=== PATIENT | male | born 1955 | race Caucasian/White ===

== ENCOUNTER 2021-11-19 13:09 | Inpatient (IN) | payer OTHER ==
[~2021-11-19] VITALS: Ht 162.6 cm; Wt 112.5 kg
[2021-11-19 13:18] VITALS: BP_SYST 150
--- NOTE | 2021-11-19 13:22 | NUR ---
[facility] waiting for bed to become available. Pt is A&Ox4. C/o testicle pain and does not remember when the pain started. Rates pain 6/10 non-radiating. VSS. No chest pain and no sob. Denies n/v.
--- NOTE | 2021-11-19 13:59 | NUR ---
Placed in room 7 . Placed on quality assurance monitor, blood pressure machine and pulse oximeter. To gown for exam. Side rails up. Report given to LONA BELLO.
--- NOTE | 2021-11-19 13:59 | NUR ---
ERMD AT BEDSIDE
--- NOTE | 2021-11-19 14:07 | NUR ---
pt refused to sit in bed, stated hesleeps in a chair at home, stated " my balls are swollen"
[2021-11-19] MEDS ORDERED: MORPHINE 2 MG/ML INJ. SYRINGE IVP ONE (15:00)
[2021-11-19] MEDS ORDERED: METF-518 PO (15:03)
[2021-11-19] MEDS ORDERED: GLIP10TA11 PO (15:03)
[2021-11-19] MEDS ORDERED: LISI40TA13 PO (15:03)
[2021-11-19] MEDS ORDERED: PIOG30TA70 PO (15:03)
--- NOTE | 2021-11-19 15:57 | NUR ---
PT IN BED AT THIS TIME, ULTRASOUND AT BEDSIDE
[2021-11-19] MEDS ORDERED: PIPERACILLIN/TAZO 3.375 GM in NS 50 ML IV ONE ×2 (16:00→20:00)
[2021-11-19] MEDS ORDERED: metroNIDAZOLE 500 mg/NS 100 ML IV ONE (16:00)
[2021-11-19] MEDS ORDERED: VANCOMYCIN HCL 1,000 MG in NS 250 ML IV ONE (16:00)
[2021-11-19 16:31] LABS: BILIRUBIN,URINE NEGATIVE (NEGATIVE); COLOR,URINE YELLOW (YELLOW); GLUCOSE,URINE NEGATIVE (NEGATIVE); KETONES,URINE NEGATIVE (NEGATIVE); LEUKOCYTE ESTERASE ,URINE NEGATIVE (NEGATIVE); NITRITE, URINE NEGATIVE (NEGATIVE); PH,URINE 5.5 (5.0-8.0); PROTEIN URINE 1+ (NEGATIVE); UROBILINOGEN,URINE 0.2 (0.2-1.0)
--- NOTE | 2021-11-19 16:33 | NUR ---
EKG performed at by Monisha ZAMORANO. Physician given copy of EKG for review.
[2021-11-19 16:43] LABS: BLOOD, URINE TRACE (NEGATIVE)
[2021-11-19 16:44] LABS: CLARITY/URINE SLIGHTLY HAZY (CLEAR)
[2021-11-19 16:44] LABS: BASOPHILS # (AUTO) 0.1 K/uL (0.0-0.2); BASOPHILS % (AUTO) 0.9 % (0.0-2.0); EOSINOPHILS # (AUTO) 0.1 K/uL (0.0-0.4); EOSINOPHILS % (AUTO) 0.9 % (0.0-4.0); HEMATOCRIT 27.1 % (36-54); HEMOGLOBIN 8.1 g/dL (14.0-18.0); LYMPHOCYTES # (AUTO) 0.8 K/uL (1.0-5.5); LYMPHOCYTES % (AUTO) 12.2 % (20.5-51.5); MEAN CORPUSCULAR HEMOGLOBIN 20 pg (27-31); MEAN CORPUSCULAR HGB CONC 30 % (32-36); MEAN CORPUSCULAR VOLUME 66 fL (79.0-98.0); MONOCYTES # (AUTO) 0.5 K/uL (0.0-1.0); MONOCYTES % (AUTO) 7.3 % (1.7-9.3); NEUTROPHILS # (AUTO) 5.4 K/uL (1.8-7.7); NEUTROPHILS % (AUTO) 78.7 % (40.0-70.0); PLATELET COUNT (AUTO) 289 K/uL (130-430); RED BLOOD CELL COUNT(AUTO) 4.12 MIL/uL (4.2-6.2); RED CELL DISTRIBUTION WIDTH 20.8 % (9.0-15.0); WHITE BLOOD COUNT (AUTO) 6.9 K/uL (4.8-10.8)
[2021-11-19 16:48] LABS: BACTERIA,URINE FEW /HPF (None Seen); MUCUS,URINE None Seen /LPF (None Seen); RBC,URINE 0-3 /HPF (0-3)
[2021-11-19 16:51] LABS: ANION GAP 7 (5-15); CALCIUM 8.6 mg/dL (8.4-11.0); CHLORIDE 103 mmol/L (98-107); CREATININE 0.86 mg/dL (0.55-1.30); GLUCOSE 105 mg/dL (70-99); POTASSIUM 3.9 mmol/L (3.5-5.1); SODIUM SERUM 137 mmol/L (136-145); UREA NITROGEN, BLOOD 11 mg/dL (8-21)
[2021-11-19 16:53] LABS: GFR AFRICAN AMERICAN 114 mL/min (>90)
[2021-11-19 16:56] LABS: INR 1.2 (0.80-1.20); PROTHROMBIN TIME 11.9 SECS (9.5-12.5)
[2021-11-19 17:00] LABS: ALANINE AMINOTRANSFERASE 9 U/L (12-78); ALBUMIN 2.8 g/dL (3.4-4.8); ASPARTATE AMINOTRANSFERASE 19 U/L (10-37); TOTAL BILIRUBIN 1.3 mg/dL (0.0-1.0)
[2021-11-19] MEDS ORDERED: PIPERACILLIN/TAZOBACTAM 3.375 GM/VIAL (ZOSYN) IV ONE (17:09)
[2021-11-19] MEDS ORDERED: VANCOMYCIN HCL 1000 MG/VIAL IV ONE (17:12)
[2021-11-19] MEDS ORDERED: MORPHINE 4 MG INJ. 4 MG/ML VIAL IVP ONE (17:15)
--- NOTE | 2021-11-19 17:42 | NUR ---
CALLED CT TO ADMINISTRATIVE ASSISTANT OFFICE MANAGER PT
--- NOTE | 2021-11-19 18:24 | NUR ---
DR VILLALOBOS AT BEDSIDE
--- NOTE | 2021-11-19 18:27 | NUR ---
PT DECIDIED TO SIT AT THE EDGE OF THE BED WHILE DR VILLALOBOS AT BEDSIDE, EDUCATED PT NOT TO SIT AT THE EDGE OF THE BED FOR SAFETY.
[2021-11-19] MEDS ORDERED: FUROSEMIDE 111.11 MG in D5W 90 ML IV ONE (19:00)
--- NOTE | 2021-11-19 19:37 | NUR ---
placed pt into wheel chair, pt unable to stay in bed because of the scrotal pain and edema.
[2021-11-19] MEDS ORDERED: FUROSEMIDE 100 MG in D5W 90 ML IV SCH (20:00)
[2021-11-19] MEDS ORDERED: LIDOCAINE JELLY 5 ML TUBE ONE (22:04)
[2021-11-19] MEDS ORDERED: HALOPERIDOL LACTATE 5 MG/ML VIAL IVP ONE (22:15)
--- NOTE | 2021-11-19 23:47 | NUR ---
Patient will be admitted to care of Dr. Bose. Admitted to [ICU] unit. Diagnosis [CELLULITIS] Inpatient (Yes or No) [YES] Observation (Yes or No) [NO] Orientation concerns or request close to nursing station (Yes or No) [NO] Covid Status [NEG] On vent or bipap [NO] Isolation requirements [NO] Needs a sitter [NO] From Home (Yes or if No enter name of facility) [HOME] Requires Dialysis (Yes or No) [NO] Med Rec Completed (Yes of No) [NO]
[2021-11-20] VITALS (19 sets, daily range): BP systolic 147–180
[2021-11-20] MEDS: CLINDAMYCIN 900 MG in D5W 100 ML IV SCH ×2 (00:06→06:00)
[2021-11-20] MEDS: MORPHINE 2 MG/ML INJ. SYRINGE IVP PRN ×3 (00:30→16:43)
[2021-11-20] MEDS ORDERED: LORazepam 2 MG/ML VIAL IVP ONE (01:00)
[2021-11-20] MEDS ORDERED: KETAMINE HCL 500 MG/10 ML VIAL IVP ONE (01:00)
[2021-11-20] MEDS ORDERED: PIPERACILLIN/TAZO 3.375/DEX-IS 50 ML IV SCH (02:00)
[2021-11-20] MEDS ORDERED: NITROGLYCERIN 1 INCH (GM) OINT. TP ONE (05:00)
--- NOTE | 2021-11-20 05:30 | NUR ---
Admit to ICU Pt oriented x4, drowsy, on 6L O2 via NC. Pt noted with multiple skin issues on BLE and scrotal swelling. Lasix drip running to peripheral IV, no infiltration noted. Pt lifted to bed via elida lift. Pt unable to assist with turning or repositioning. Per report, RN and MD unable to place hyman catheter in pt. Pt too drowsy to fully complete admission questionnaire.
[2021-11-20 06:37] LABS: ALBUMIN 2.9 g/dL (3.4-4.8); CALCIUM 8.8 mg/dL (8.4-11.0); CREATININE 0.89 mg/dL (0.55-1.30); POTASSIUM 3.7 mmol/L (3.5-5.1); TOTAL BILIRUBIN 1.7 mg/dL (0.0-1.0)
--- NOTE | 2021-11-20 06:37 | NUR ---
Patient will be admitted to care of . Admitted to unit. Will go to room . Belongings list completed. Complete and up to date summary report printed. SBAR report to be given at bedside with opportunity for questions.
[2021-11-20 07:27] LABS: INR 1.1 (0.80-1.20); PROTHROMBIN TIME 11.4 SECS (9.5-12.5)
[2021-11-20] MEDS: CLINDAMYCIN PHOS 900 MG/ D5W 50 ML PREMIX IV SCH ×3 (07:30→21:04)
[2021-11-20] MEDS ORDERED: FUROSEMIDE 100 MG in D5W 90 ML IV SCH ×2 (07:45→09:45)
[2021-11-20 07:52] LABS: FREE T4 (FREE THYROXINE) 1.6 ng/dl (0.8-1.5); THYROID STIMULATING HORMONE 2.35 uIu/mL (0.36-3.74)
[2021-11-20 07:57] LABS: HEMATOCRIT 33.4 % (36-54); HEMOGLOBIN 9.8 g/dL (14.0-18.0); MEAN CORPUSCULAR HEMOGLOBIN 20 pg (27-31); MEAN CORPUSCULAR HGB CONC 29 % (32-36); MEAN CORPUSCULAR VOLUME 67 fL (79.0-98.0); PLATELET COUNT (AUTO) 406 K/uL (130-430); RED BLOOD CELL COUNT(AUTO) 4.97 MIL/uL (4.2-6.2); RED CELL DISTRIBUTION WIDTH 21.2 % (9.0-15.0)
--- NOTE | 2021-11-20 08:00 | NUR ---
FINESSE LANDAVERDE, REGISTRY IS IN CHARGE OF THIS PATIENT/PT IS ALERT, ORIENTED, AND ON LASIX DRIP, PT HAS HIGH BP, PAGED FOR PRN MEDS, PT PRESLEY WAS ATTEMPTED IN ER BUT PT IS CONTINENT OF URINE, PT AFEBRILE AND ON 6L FIO2, REDUCED TO 4L O2 SAT GOOD/MW
[2021-11-20] MEDS ORDERED: VANCOMYCIN HCL 1,000 MG in NS 250 ML IV SCH (09:00)
[2021-11-20] MEDS: PIPERACILLIN/TAZO 3.375/DEX-IS 50 ML IV SCH ×3 (09:13→17:25)
[2021-11-20] MEDS: ENOXAPARIN SODIUM 30 MG/0.3 ML SYRINGE SUBCUT SCH (09:54)
[2021-11-20] MEDS: CARVEDILOL 6.25 MG TABLET (COREG) PO SCH ×2 (09:57→21:03)
[2021-11-20] MEDS: lisinopriL 20 MG TABLET PO SCH (09:58)
[2021-11-20] MEDS: VANCOMYCIN HCL 1,000 MG in NS 250 ML IV SCH ×2 (10:06→21:05)
[2021-11-20] MEDS: ATORVASTATIN 20 MG TABLET PO SCH (10:07)
[2021-11-20 12:30] LABS: BASOPHILS % (MANUAL) 0 % (0-2); EOSINOPHILS % (MANUAL) 0 % (0-7); LYMPHOCYTES % (MANUAL) 8 % (20-46); MONOCYTES % (MANUAL) 2 % (0-11)
--- NOTE | 2021-11-20 12:42 | NUR ---
STOPPED LASIX DRIP PT OUTPUT OVER 700CC/H-SPOKE TO MD ABOUT PRN BP MEDS AND PUD, PT NOW ON IVP LASIX 40MG IVP Q8/PT BEING SEEN BY INVESTOR RELATIONS COORDINATOR NOWFOR SUPPORT//MW
[2021-11-20] MEDS ORDERED: PANTOPRAZOLE SODIUM 40 MG/VIAL (PROTONIX) IVP ONE (12:45)
[2021-11-20] MEDS ORDERED: LABETALOL 100 MG/ 20ML VIAL IVP PRN (13:00)
[2021-11-20] MEDS: FUROSEMIDE 40 MG/4 ML VIAL IVP SCH ×2 (13:11→21:04)
--- NOTE | 2021-11-20 13:16 | NUR ---
Promotion Writer CUPOLA TENDER received a referral for outreach and education social worker to see pt. CUPOLA TENDER met with pt. in his ICU room. CUPOLA TENDER introduced self and gave pt. her business card. Pt. was lethargic, barely opened his eyes and did not elaborate on his answers. Pt. confirmed his demographics. Pt. stated he lives alone in the house, address is listed on the facesheet. When asked about any support systems, pt. stated he has no one, no family, no friends. Pt only has his next door neighbor, "Abdoulaye" with a phone number listed. CUPOLA TENDER completed the Discharge Planning Assessment. During this interview, pt. remained calm, answered all the questioned. Pt. denied having any suicidal ideations by stating, "Hell No" "Why would I do that". Pt. denied having any mental health services. CUPOLA TENDER asked pt. if he had any questions and he did not. CUPOLA TENDER asked him to let his Rn know if he needed anything from Promotion Writer. CUPOLA TENDER will remain available as needed.
[2021-11-20 13:44] LABS: TOTAL IRON BIND. CAPACITY 376 ug/dL (250-450)
--- NOTE | 2021-11-20 14:30 | NUR ---
WOUND EVALUATION: Wound Consult received from Dr. Ortiz. Thank you, Dr. Ortiz, for the consult. Patient received in a Doroteo Bed with an IsoFlex ELIUD mattress, nonverbal, nonresponsive. Patient is unable to turn in bed independently. Finn Score is a 14. Past Medical History: Morbid Obesity, s/p Gastric Bypass (a few years ago), Diabetes Mellitus, Hypertension. Recent Labs: WBC 10.0, RBC 4.97, hemoglobin 9.8, hematocrit 33.4, glucose 135, ALT 10, C-reactive protein 2.0, albumin 2.9, PTT 24.5. Microbiology: MRSA screen results in progress. Blood culture results x2 in progress. Urine culture results negative. Intrinsic factors that delay wound healing: Diabetes Mellitus, severe Hypoalbuminemia. Extrinsic factors that delay wound healing: Decreased mobility. Wound Assessment: 1. Left Lower Extremity: Cellulitis with calor, firm edema, and dry scaly skin, present on admission. 2. Right Lower Extremity: Cellulitis with calor, firm edema, and dry scaly skin, present on admission. Recommend: Cleanse bilateral lower extremities with mild soap and water. Pat dry. Apply Eucerin cream to dry scaly skin areas q. AM (1000), and apply ammonium lactate cream to dry scaly skin areas every pm (2100). Elevate bilateral lower extremities as tolerated. 3. Right Medial Proximal Posterior Calf: Wound, possible due to venous insufficiency, present on admission. Bed has 100% yellow tissue. No odor, scant yellow drainage. Periwound intact. Wound measures 2.5 cm x 3.5 cm. 4. Right Medial Proximal Posterior Calf, Inferior to Site 3: Wound, possible due to venous insufficiency, present on admission. Bed has 70% yellow tissue, 30% pink tissue. No odor, scant yellow drainage. Periwound intact. Wound measures 8.4 cm x 4.0 cm. Recommend: Cleanse wound with normal saline. Apply SurePrep to velma-wound. Apply Hydrogel to wound bed. Cover with nonadhesive foam dressing, wrap with Cecy wrap. Perform wound care daily, and as needed for dressing soiling or dislodgement. 5. Scrotal area: Gross edema, present on admission. No odor, no drainage. Skin is intact. Recommend: Apply moisture barrier cream to scrotal area. Place Interdry AG cloth underneath scrotum and elevate by pulling cloth up in between bilateral thighs letting scrotum rest on thighs. Elevate scrotum as tolerated. Also recommend: Reposition patient every 2 hours with pillow support and off-load pressure areas with pillows for pressure re-distribution. Offload, elevate and float bilateral heels with pillows. Perform skin care and monitor skin integrity Q shift. Use moisture barrier cream on buttocks and other moisture susceptible areas QID and as needed for soiling. Initiate low air-loss therapy.
--- NOTE | 2021-11-20 14:57 | NUR ---
PT SIGNED PICC LINE CONSENT/PT CAN USE ARMS BUT ONLY WHEN HE WANTS TO APPARENTLY//PT WILL NOT HOLD THE URINAL OR PULL UP HIS BLANKETS/VS BECOMING STABLE//MW
--- NOTE | 2021-11-20 15:46 | NUR ---
PATIENT WAS EVALUATED BY SPEECH THERAPY. ST NOTED THAT THE PATIENT CANNOT TOLERATE THIN LIQUIDS. ST RECOMMENDS THAT THE PATIENT REMAINS NPO TILL FURTHER NOTICE. PAGED MD TO NOTIFY THAT THE PATIENT FAILED ST EVAL.--PILLO/RN STUDENT NURSE
--- NOTE | 2021-11-20 15:55 | NUR ---
ST EVALUATION COMPLETED. ST TX NOT INDICATED AT THIS TIME. RECOMMEND NPO WITH ALTERNATIVE MEANS OF NUTRITION DUE TO POOR SWALLOW FUNCTION AND SAFETY.
--- NOTE | 2021-11-20 19:05 | NUR ---
ASSUMED CARE, RECD REPORT FROM ADDY ZAMORANO FOR CONTINUITY OF CARE.
[2021-11-20] MEDS: AMMONIUM LACTATE 12%, 400 ML LOTION TP SCH (21:05)
[2021-11-21] VITALS (15 sets, daily range): BP systolic 139–160
[2021-11-21] MEDS: PIPERACILLIN/TAZO 3.375/DEX-IS 50 ML IV SCH ×5 (00:14→23:59)
--- NOTE | 2021-11-21 01:00 | NUR ---
WOUND CARE DONE ON BLE LEGS WASHED WITH N/S AND SOAKED IN WARM WET CLOTH AND LOTION APPLIED.
--- NOTE | 2021-11-21 05:00 | NUR ---
REMAINS INCONTINENT MULTIPLE TIMES, CHG BATH GIVEN COMPLETE BED BATH DONE,VSS,
[2021-11-21] MEDS: MORPHINE 2 MG/ML INJ. SYRINGE IVP PRN ×3 (05:11→20:39)
--- NOTE | 2021-11-21 05:30 | NUR ---
C/O NECK AND GEN PAIN 11/23 MORPHINE 1 MG IVP GIVEN.
[2021-11-21] MEDS: CLINDAMYCIN PHOS 900 MG/ D5W 50 ML PREMIX IV SCH ×3 (06:02→20:36)
[2021-11-21] MEDS: FUROSEMIDE 40 MG/4 ML VIAL IVP SCH ×3 (06:03→23:58)
[2021-11-21 06:29] LABS: BASOPHILS % (AUTO) 0.3 % (0.0-2.0); HEMATOCRIT 32.2 % (36-54); HEMOGLOBIN 9.8 g/dL (14.0-18.0); LYMPHOCYTES # (AUTO) 0.7 K/uL (1.0-5.5); MEAN CORPUSCULAR HEMOGLOBIN 20 pg (27-31); MEAN CORPUSCULAR HGB CONC 30 % (32-36); MEAN CORPUSCULAR VOLUME 65 fL (79.0-98.0); MONOCYTES # (AUTO) 0.5 K/uL (0.0-1.0); MONOCYTES % (AUTO) 4.3 % (1.7-9.3); NEUTROPHILS # (AUTO) 9.2 K/uL (1.8-7.7); NEUTROPHILS % (AUTO) 88.4 % (40.0-70.0); PLATELET COUNT (AUTO) 396 K/uL (130-430); RED BLOOD CELL COUNT(AUTO) 4.96 MIL/uL (4.2-6.2); RED CELL DISTRIBUTION WIDTH 20.6 % (9.0-15.0); WHITE BLOOD COUNT (AUTO) 10.4 K/uL (4.8-10.8)
--- NOTE | 2021-11-21 06:30 | NUR ---
0200 DESATURATING TO 84-85 ON ROOM AIR REFUSED O2 SUPPORT HE SAID HE WILL MANAGE IT OFFER FACE MASK REFUSED. 0300 ABLE TO ENCOURAGE AGAIN TO PUT BACK HIS O2 SUPPORT BLOW BY IN HIS MOUTH.
[2021-11-21 06:50] LABS: INR 1.2 (0.80-1.20); PROTHROMBIN TIME 12.1 SECS (9.5-12.5)
[2021-11-21 07:07] LABS: ALBUMIN 2.6 g/dL (3.4-4.8); CALCIUM 8.7 mg/dL (8.4-11.0); CREATININE 0.86 mg/dL (0.55-1.30); THYROID STIMULATING HORMONE 0.9 uIu/mL (0.36-3.74); TOTAL BILIRUBIN 2.1 mg/dL (0.0-1.0)
[2021-11-21 08:18] LABS: POTASSIUM 2.9 mmol/L (3.5-5.1)
[2021-11-21] MEDS ORDERED: POTASSIUM CHLORIDE 20 MEQ TAB.PRT.SR PO ONE (10:00)
[2021-11-21] MEDS ORDERED: SPIRONOLACTONE 50 MG TABLET (ALDACTONE) PO ONE (10:00)
[2021-11-21] MEDS: EMOLLIENT COMBINATION NO.73 78 GM CREAM..G. TP SCH (10:00)
[2021-11-21] MEDS: lisinopriL 20 MG TABLET PO SCH (10:04)
[2021-11-21] MEDS: ATORVASTATIN 20 MG TABLET PO SCH (10:04)
[2021-11-21] MEDS: CARVEDILOL 12.5 MG TABLET (COREG) PO SCH ×2 (10:05→20:37)
[2021-11-21] MEDS: ENOXAPARIN SODIUM 30 MG/0.3 ML SYRINGE SUBCUT SCH (10:06)
--- NOTE | 2021-11-21 11:19 | NUR ---
Dietitian Recommendations * F/U ST swallow eval to assess current swallow function * Consider CCHO, 2 gm Na dietary restrictions if PO diet is indicated; food texture per ST rec LP, RD Please refer to Nutrition Assessment for details. Addendum: 11/21/21 at [address] Amended: Links added.
--- NOTE | 2021-11-21 12:42 | NUR ---
PT TO TELE BED, LONA APONTE WILL GIVE THE VANCOMYCIN AND ZOSYN I ADMITTED A PT AT THE TIME IT WAS DUE/PT IS IN STABLE CONDITION, URINE OUTPUT IS OVER 700/MW
[2021-11-21] MEDS ORDERED: MAGNESIUM SULFATE 4 GM in D5W 250 ML IV ONE (13:00)
[2021-11-21] MEDS: VANCOMYCIN HCL 1,000 MG in NS 250 ML IV SCH ×2 (13:04→21:48)
[2021-11-21] MEDS: SPIRONOLACTONE 50 MG TABLET (ALDACTONE) PO SCH (20:38)
[2021-11-21] MEDS: AMMONIUM LACTATE 12%, 400 ML LOTION TP SCH (21:48)
--- NOTE | 2021-11-22 03:26 | NUR ---
Recieved pt from am shift. Pt aox3, understands limitations. Lungs are diminished at bases, and pt is obese. Pt has bilat lower extremity cellutlitis, and swelling of scrotum. pt has chronic pain, request morphine. Will assess before administering. fall precautions are in place. bed locked in lowest position with call light in reach.
[2021-11-22] MEDS: PIPERACILLIN/TAZO 3.375/DEX-IS 50 ML IV SCH ×3 (05:15→17:00)
[2021-11-22] MEDS: CLINDAMYCIN PHOS 900 MG/ D5W 50 ML PREMIX IV SCH ×3 (05:56→21:18)
[2021-11-22] MEDS: FUROSEMIDE 40 MG/4 ML VIAL IVP SCH ×3 (05:56→22:20)
[2021-11-22] MEDS: MORPHINE 2 MG/ML INJ. SYRINGE IVP PRN ×2 (06:16→15:39)
[2021-11-22 06:50] LABS: HEMATOCRIT 35.1 % (36-54); HEMOGLOBIN 10.7 g/dL (14.0-18.0); LYMPHOCYTES # (AUTO) 0.4 K/uL (1.0-5.5); MEAN CORPUSCULAR HEMOGLOBIN 20 pg (27-31); MEAN CORPUSCULAR HGB CONC 30 % (32-36); MEAN CORPUSCULAR VOLUME 64 fL (79.0-98.0); MONOCYTES # (AUTO) 1.1 K/uL (0.0-1.0); MONOCYTES % (AUTO) 7.6 % (1.7-9.3); NEUTROPHILS # (AUTO) 12.6 K/uL (1.8-7.7); NEUTROPHILS % (AUTO) 89.4 % (40.0-70.0); PLATELET COUNT (AUTO) 408 K/uL (130-430); RED BLOOD CELL COUNT(AUTO) 5.45 MIL/uL (4.2-6.2); RED CELL DISTRIBUTION WIDTH 20.8 % (9.0-15.0); WHITE BLOOD COUNT (AUTO) 14.1 K/uL (4.8-10.8)
[2021-11-22 07:00] VITALS: BP_SYST 146
[2021-11-22 08:07] LABS: ALBUMIN 2.6 g/dL (3.4-4.8); CALCIUM 8.6 mg/dL (8.4-11.0); CREATININE 0.97 mg/dL (0.55-1.30)
[2021-11-22] MEDS: CARVEDILOL 12.5 MG TABLET (COREG) PO SCH ×2 (08:17→20:34)
[2021-11-22] MEDS: ATORVASTATIN 20 MG TABLET PO SCH (08:18)
[2021-11-22] MEDS: SPIRONOLACTONE 50 MG TABLET (ALDACTONE) PO SCH ×2 (08:18→20:35)
[2021-11-22] MEDS: lisinopriL 20 MG TABLET PO SCH (08:19)
[2021-11-22] MEDS: ENOXAPARIN SODIUM 30 MG/0.3 ML SYRINGE SUBCUT SCH (08:19)
[2021-11-22] MEDS ORDERED: POTASSIUM CHLORIDE 20 MEQ TAB.PRT.SR PO SCH (09:00)
[2021-11-22] MEDS: VANCOMYCIN HCL 1,000 MG in NS 250 ML IV SCH ×2 (09:37→22:20)
[2021-11-22] MEDS: EMOLLIENT COMBINATION NO.73 78 GM CREAM..G. TP SCH (09:41)
[2021-11-22 10:21] LABS: POTASSIUM 2.5 mmol/L (3.5-5.1)
[2021-11-22] MEDS ORDERED: POTASSIUM CHLORIDE 20 MEQ TAB.PRT.SR PO ONE (11:00)
[2021-11-22] MEDS ORDERED: KCL 20 mEq in 100 mL (PREMIX) 100 ML IV ONE (11:00)
[2021-11-22 11:51] VITALS: BP_SYST 142
[2021-11-22 15:25] VITALS: BP_SYST 123
[2021-11-22] MEDS: AMMONIUM LACTATE 12%, 400 ML LOTION TP SCH (20:32)
[2021-11-22 21:00] VITALS: BP_SYST 133
[2021-11-22 23:32] VITALS: BP_SYST 135
[2021-11-23] MEDS: PIPERACILLIN/TAZO 3.375/DEX-IS 50 ML IV SCH ×5 (00:59→23:17)
[2021-11-23] MEDS: CLINDAMYCIN PHOS 900 MG/ D5W 50 ML PREMIX IV SCH ×3 (05:36→22:02)
[2021-11-23] MEDS: FUROSEMIDE 40 MG/4 ML VIAL IVP SCH (06:51)
[2021-11-23 07:47] VITALS: BP_SYST 130
[2021-11-23] MEDS: SPIRONOLACTONE 50 MG TABLET (ALDACTONE) PO SCH ×2 (08:51→21:57)
[2021-11-23] MEDS: POTASSIUM CHLORIDE 10 MEQ TAB.PRT.SR PO SCH ×3 (08:51→21:57)
[2021-11-23] MEDS: CARVEDILOL 12.5 MG TABLET (COREG) PO SCH ×2 (08:52→21:57)
[2021-11-23] MEDS: lisinopriL 20 MG TABLET PO SCH (08:53)
[2021-11-23] MEDS: ATORVASTATIN 20 MG TABLET PO SCH (08:53)
[2021-11-23] MEDS: ENOXAPARIN SODIUM 30 MG/0.3 ML SYRINGE SUBCUT SCH (08:54)
[2021-11-23 09:41] LABS: ALBUMIN 2.6 g/dL (3.4-4.8); CALCIUM 8.2 mg/dL (8.4-11.0); CREATININE 1.07 mg/dL (0.55-1.30); TOTAL BILIRUBIN 2.1 mg/dL (0.0-1.0)
[2021-11-23 10:26] LABS: POTASSIUM 2.9 mmol/L (3.5-5.1)
[2021-11-23] MEDS ORDERED: KCL 40 mEq in 100 mL (PREMIX) 100 ML IV ONE (11:00)
[2021-11-23] MEDS: EMOLLIENT COMBINATION NO.73 78 GM CREAM..G. TP SCH (11:07)
[2021-11-23] MEDS ORDERED: MAGNESIUM SULFATE 3 GM in D5W 100 ML IV ONE (11:45)
[2021-11-23] MEDS: POTASSIUM CHLORIDE 20 mEq in 100 mL (PREMIX) 100 ML x 2 doses IV SCH ×2 (11:55→14:12)
[2021-11-23] MEDS ORDERED: ACETAMINOPHEN 325 MG TABLET PO PRN (12:00)
[2021-11-23 12:17] VITALS: BP_SYST 122
[2021-11-23] MEDS: MORPHINE 2 MG/ML INJ. SYRINGE IVP PRN ×2 (13:15→22:08)
--- NOTE | 2021-11-23 16:12 | NUR ---
CONSULTATION; REASON FOR CONSULT: WBC CONSULTING PHYSICIAN: Gigi ALICEA ORDERED BY: WILFREDO SPOKE WITH EMY FROM EXCHANGE [phone]
[2021-11-23 16:36] VITALS: BP_SYST 129
--- NOTE | 2021-11-23 19:31 | NUR ---
late entry due to care 0800 -pt stable . vitals stable. not in acute distress. res even and unlabored. denies any sob safety and fall precautions in place. call light within reach . repositioned with pillow.will continue to monitor 1000- due meds given as ordered.notin acute distress 1200- seen by dr calderon. new order received. vitals stable not in acute distress.pt cleaned and repositioned .hob elevated . needs attended 1600- pt stable not in acute distress. 1900- pt stable vitals stable . eating dinner. c/o of pain asking fo Tylenol. medicated with Tylenol as ordered. needs attended. denies any chest pain or sob. kept comfortable.
--- NOTE | 2021-11-23 19:55 | NUR ---
RECEIVED PT LYING IN BED, NO DISTRESS NOTED, DENIES PAIN. PT RESTING NO C/O AT THIS TIME. IV TO RT AC SITE CDI. PT WITH INCONTINENT PAD. LESIONS TO BLE, WEAK PULSES TO BLE.
[2021-11-23 20:00] VITALS: BP_SYST 130
[2021-11-23] MEDS: FUROSEMIDE 40 MG TABLET PO SCH (21:59)
[2021-11-23] MEDS: AMMONIUM LACTATE 12%, 400 ML LOTION TP SCH (22:02)
[2021-11-24 00:38] VITALS: BP_SYST 139
[2021-11-24] MEDS: MORPHINE 2 MG/ML INJ. SYRINGE IVP PRN ×2 (03:38→17:01)
[2021-11-24] MEDS: CLINDAMYCIN PHOS 900 MG/ D5W 50 ML PREMIX IV SCH (05:20)
[2021-11-24] MEDS: PIPERACILLIN/TAZO 3.375/DEX-IS 50 ML IV SCH (06:06)
[2021-11-24 06:15] LABS: BASOPHILS % (AUTO) 0.1 % (0.0-2.0); EOSINOPHILS # (AUTO) 0.2 K/uL (0.0-0.4); EOSINOPHILS % (AUTO) 1.3 % (0.0-4.0); HEMATOCRIT 36.1 % (36-54); HEMOGLOBIN 10.8 g/dL (14.0-18.0); LYMPHOCYTES # (AUTO) 0.6 K/uL (1.0-5.5); LYMPHOCYTES % (AUTO) 3.9 % (20.5-51.5); MEAN CORPUSCULAR HEMOGLOBIN 20 pg (27-31); MEAN CORPUSCULAR HGB CONC 30 % (32-36); MEAN CORPUSCULAR VOLUME 66 fL (79.0-98.0); MONOCYTES # (AUTO) 0.9 K/uL (0.0-1.0); MONOCYTES % (AUTO) 6.5 % (1.7-9.3); NEUTROPHILS # (AUTO) 12.7 K/uL (1.8-7.7); NEUTROPHILS % (AUTO) 88.2 % (40.0-70.0); PLATELET COUNT (AUTO) 386 K/uL (130-430); RED BLOOD CELL COUNT(AUTO) 5.51 MIL/uL (4.2-6.2); WHITE BLOOD COUNT (AUTO) 14.4 K/uL (4.8-10.8)
[2021-11-24] MEDS: VANCOMYCIN HCL 750 MG in NS 250 ML IV SCH ×2 (06:52→18:54)
[2021-11-24 07:21] LABS: ALBUMIN 2.6 g/dL (3.4-4.8); CALCIUM 8.3 mg/dL (8.4-11.0); CREATININE 1.02 mg/dL (0.55-1.30); POTASSIUM 3.9 mmol/L (3.5-5.1)
[2021-11-24 08:00] VITALS: BP_SYST 132
[2021-11-24 08:18] LABS: RED CELL DISTRIBUTION WIDTH 21.5 % (9.0-15.0)
[2021-11-24] MEDS: EMOLLIENT COMBINATION NO.73 78 GM CREAM..G. TP SCH (10:00)
[2021-11-24] MEDS: SPIRONOLACTONE 50 MG TABLET (ALDACTONE) PO SCH ×2 (10:00→21:30)
[2021-11-24] MEDS: lisinopriL 20 MG TABLET PO SCH (10:52)
[2021-11-24] MEDS: CARVEDILOL 12.5 MG TABLET (COREG) PO SCH ×2 (10:53→21:30)
[2021-11-24] MEDS: ATORVASTATIN 20 MG TABLET PO SCH (10:54)
[2021-11-24] MEDS: FUROSEMIDE 40 MG TABLET PO SCH ×2 (10:54→21:31)
[2021-11-24] MEDS: ENOXAPARIN SODIUM 30 MG/0.3 ML SYRINGE SUBCUT SCH (10:54)
[2021-11-24] MEDS: POTASSIUM CHLORIDE 10 MEQ TAB.PRT.SR PO SCH ×3 (10:55→21:30)
[2021-11-24 11:15] VITALS: BP_SYST 120
[2021-11-24] MEDS: CEFAZOLIN 2 GM IVPB PREMIX 50 ML IV SCH ×2 (12:54→21:31)
[2021-11-24] MEDS ORDERED: D5W 1,000 ML IV PRN (14:30)
[2021-11-24] MEDS ORDERED: GLUCOSE (DEXTROSE) ORAL GEL -Adults PO PRN (14:30)
[2021-11-24] MEDS ORDERED: DEXTROSE 50%-WATER 50 ML DISP.SYRIN IVP PRN (14:30)
[2021-11-24 15:04] LABS: FERRITIN 18 ng/mL (30-400)
[2021-11-24 17:07] VITALS: BP_SYST 129
[2021-11-24] MEDS: metFORMIN HCL 500 MG TABLET PO SCH (18:30)
[2021-11-24 20:00] VITALS: BP_SYST 124
[2021-11-24] MEDS: LACTOBACILLUS RHAMNOSUS GG 1 CAP CAPSULE PO SCH (21:30)
[2021-11-24] MEDS: AMMONIUM LACTATE 12%, 400 ML LOTION TP SCH (21:31)
[2021-11-25] VITALS: BP_SYST 118
[2021-11-25] MEDS: CEFAZOLIN 2 GM IVPB PREMIX 50 ML IV SCH ×2 (05:40→13:57)
[2021-11-25] MEDS: VANCOMYCIN HCL 750 MG in NS 250 ML IV SCH ×2 (05:40→17:52)
[2021-11-25 07:15] LABS: CALCIUM 8.6 mg/dL (8.4-11.0); CREATININE 0.91 mg/dL (0.55-1.30)
[2021-11-25 07:37] VITALS: BP_SYST 145
[2021-11-25 08:00] VITALS: BP_SYST 145
--- NOTE | 2021-11-25 08:05 | NUR ---
Received patient, alert,awake and oriented. Denies any pain or discomfort at this time. Vital signs stable. Bed at lowest position for safety.
[2021-11-25] MEDS: metFORMIN HCL 500 MG TABLET PO SCH ×2 (08:21→17:50)
[2021-11-25] MEDS: LACTOBACILLUS RHAMNOSUS GG 1 CAP CAPSULE PO SCH (08:22)
[2021-11-25] MEDS: MORPHINE 2 MG/ML INJ. SYRINGE IVP PRN (08:22)
[2021-11-25] MEDS: ATORVASTATIN 20 MG TABLET PO SCH (08:23)
[2021-11-25] MEDS: CARVEDILOL 12.5 MG TABLET (COREG) PO SCH (08:24)
[2021-11-25] MEDS: SPIRONOLACTONE 50 MG TABLET (ALDACTONE) PO SCH (08:24)
[2021-11-25] MEDS: POTASSIUM CHLORIDE 10 MEQ TAB.PRT.SR PO SCH ×2 (08:24→17:50)
[2021-11-25] MEDS: FUROSEMIDE 40 MG TABLET PO SCH (08:25)
[2021-11-25] MEDS: lisinopriL 20 MG TABLET PO SCH (08:26)
[2021-11-25] MEDS ORDERED: INSULIN GLARGINE 100 UNITS/ML 10 ML VIAL SUBCUT SCH (09:00)
[2021-11-25] MEDS: ENOXAPARIN SODIUM 30 MG/0.3 ML SYRINGE SUBCUT SCH (09:55)
[2021-11-25] MEDS: EMOLLIENT COMBINATION NO.73 78 GM CREAM..G. TP SCH (11:00)
[2021-11-25 12:10] VITALS: BP_SYST 96
[2021-11-25] MEDS ORDERED: NALOXONE HCL 0.4 MG/ML AMP (NARCAN) IVP PRN (13:00)
[2021-11-25] MEDS ORDERED: HYDROcodone/ACETAMIN 7.5-325 MG TAB PO PRN (13:00)
[2021-11-25] MEDS ORDERED: HYDROcodone/ACETAMIN 5-325 MG TAB (NORCO/ VICODIN) PO PRN (13:00)
[2021-11-25 16:30] VITALS: BP_SYST 102
[2021-11-25] MEDS ORDERED: FUROSEMIDE 40 MG TABLET PO SCH (21:00)
[2021-11-25 21:40] VITALS: BP_SYST 106
--- NOTE | 2021-11-25 21:55 | NUR ---
CALLED [phone] AND LEFT MESSAGE TO CALL BACK ON , TO NOTIFY THE TRANSFER
--- NOTE | 2021-11-25 22:52 | NUR ---
PT WAS ADMITTED FOR CELLULITIS AND CHF ON 11/19/2021, , HE ALERT ORIENTED X4, CLER LUNG SOUNDS , NC 3L , HE IS ON CCHO DIET , HAS PRESLEY FOR SKIN INFECTION IN SACRUM , WAS DISCHARGED ON 11/25/2021 2200 TO [facility]( ROOM #14A ,REPORT WAS GIVEN OVER THE PHONE TO LONA ESPINOZA ( [phone]) , CIVIL STRUCTURAL DESIGNER MARSHALL ( [phone]) CAKLLED TO ARRNGE THE TRANSFER TO SNF . OLGA ZAMORANO REQUESTED TO KEEP FOLY AND PICC LINE IN PLACE
[2021-11-26] MEDS ORDERED: INSULIN GLARGINE 100 UNITS/ML 10 ML VIAL SUBCUT SCH (09:00)
== END 2021-11-25 22:00 | DRG 602 ==
LOC: SED 13:09 → OBSVTOIN 18:57 → STU 18:57 → SIC 18:58 → STU 22:40 → SIC 11-20 04:59 → STU 11-21 12:51 → SMU 11-25 19:48
PROVIDERS: ADMIT Internal Medicine; ATTEND Internal Medicine
PROC: 02HV33Z Insertion of Infusion Device into Superior Vena Cava, Percutaneous Approach (ICD-10-PCS; principal; 2021-11-20)
PROC: B548ZZA Ultrasonography of Superior Vena Cava, Guidance (ICD-10-PCS; 2021-11-20)
DX: L03.116 Cellulitis of left lower limb (principal); J96.01 Acute respiratory failure with hypoxia; E44.0 Moderate protein-calorie malnutrition; N39.0 Urinary tract infection, site not specified; Z68.41 Body mass index [BMI] 40.0-44.9, adult; I42.0 Dilated cardiomyopathy; I11.0 Hypertensive heart disease with heart failure; L03.115 Cellulitis of right lower limb; N49.3 Fournier gangrene; E11.9 Type 2 diabetes mellitus without complications; E66.01 Morbid (severe) obesity due to excess calories; I50.9 Heart failure, unspecified; K80.20 Calculus of gallbladder without cholecystitis without obstruction; N35.911 Unspecified urethral stricture, male, meatal; N49.2 Inflammatory disorders of scrotum; N50.89 Other specified disorders of the male genital organs; Z79.84 Long term (current) use of oral hypoglycemic drugs; Z79.899 Other long term (current) drug therapy; Z98.84 Bariatric surgery status; Z88.8 Allergy status to other drugs, medicaments and biological substances; E88.09 Other disorders of plasma-protein metabolism, not elsewhere classified; Z91.018 Allergy to other foods; Z91.011 Allergy to milk products; Z20.822 Contact with and (suspected) exposure to COVID-19; E87.6 Hypokalemia; I87.2 Venous insufficiency (chronic) (peripheral); N47.1 Phimosis; D63.8 Anemia in other chronic diseases classified elsewhere
CPT/HCPCS: 36415; 71045; 76376; 76870-TC; 80048; 80053; 80202; 81000; 82607; 82728; 82962; 83540; 83550; 83605; 83735; 83880; 84439; 84443; 84484; 85007; 85025; 85027; 85379; 85610-TC; 85651-TC; 85730-TC; 86140; 87040; 87081; 87086; 92610-GN; 93005; 93306; 96374; 96375; 99291; C9113; G0378; J0690; J1650; J1815; J1940; J2060; J2270; J2543; J3370; J3475; J3480; J3490; J7050; J7060